=== PATIENT | female | born 1970 | race Caucasian/White ===

== ENCOUNTER → 2017-04-28 | Outpatient (CLI) | payer BC ==
--- NOTE | 2017-05-03 09:22 | KCIC ---
DATE: 04/28/2017 EXAM: MAMMO DEVORAH SCREENING BILATERAL HISTORY: Breast implants, routine screening COMPARISON: 08/18/2013 This study was interpreted with the benefit of Computerized Aided Detection (CAD). The breast parenchyma is heterogeneously dense, which could reduce sensitivity of mammography. Breast parenchyma level C. FINDINGS: 2-D and 3-D tomosynthesis imaging was performed in CC and MLO projections, including implant exclusion views. There is a 17 mm smooth oval-shaped nodule present in the right breast located just superior and medial to the midline of the breast. It is best seen on CC tomograms image #37 and right MLO tomogram image #37. It was not evident on the previous study. Small, smooth, intramammary lymph node type densities projected over the axillary tail region of the left breast are unchanged. No other new or enlarging breast densities are seen. No suspicious microcalcifications are evident. IMPRESSION: Right breast nodule as described above. Sonographic evaluation is suggested. BI-RADS CATEGORY: 0 INCOMPLETE: NEEDS ADDITIONAL IMAGING EVALUATION AND/OR PRIOR MAMMOGRAMS FOR COMPARISON. RECOMMENDED FOLLOW-UP: ADD ADDITIONAL IMAGING PQRS compliance statement: Patient information was entered into a reminder system with a target due date for the next mammogram. Mammography is a sensitive method for finding small breast cancers, but it does not detect them all and is not a substitute for careful clinical examination. A negative mammogram does not negate a clinically suspicious finding and should not result in delay in biopsying a clinically suspicious abnormality. "Our facility is accredited by the [employer] Mammography Program."
== END | disposition home or self-care (01) ==
LOC: KCIC MAMMO 08:21
PROVIDERS: ATTEND Family Medicine
DX: Z12.31 Encounter for screening mammogram for malignant neoplasm of breast (principal)
CPT/HCPCS: 77063; G0202; 77067

== ENCOUNTER → 2017-05-05 | Outpatient (CLI) | payer BC ==
--- NOTE | 2017-05-05 08:51 | RAD ---
Right breast ultrasound, 05/05/2017: History: Abnormal mammogram A targeted ultrasound exam of the right breast was performed in the upper inner quadrant in the area of concern noted on the recent mammograms. At the 12:30 location there is a 17 x 13 x 9 mm anechoic structure. It demonstrates smooth rivera and posterior acoustic enhancement. The appearance is that of a simple cyst. This corresponds in size and location to the mammographic abnormality. Just inferior and medial to this cyst there is a small 3 x 4 mm hypoechoic nodule. It is rounded in configuration. No definite posterior acoustic enhancement or shadowing is seen. This is likely a complicated cyst, although a small fibroadenoma could also give this appearance. A circumscribed malignancy cannot be entirely excluded. IMPRESSION: 1. Simple cyst corresponding to the mammographic abnormality. 2. Probably benign adjacent small hypoechoic nodule as described above. Sonographic surveillance, beginning in 4-6 months, is suggested to established stability of this nodule. BI-RADS 3-probably benign findings
== END | disposition home or self-care (01) ==
LOC: US 07:58
PROVIDERS: ATTEND Family Medicine
DX: N63.12 Unspecified lump in the right breast, upper inner quadrant (principal); N60.01 Solitary cyst of right breast
CPT/HCPCS: 76641